=== PATIENT | female | born 1995 | race Caucasian/White ===

== ENCOUNTER 2017-09-24 21:19 | Emergency (ER) | payer MEDICAID ==
[~2017-09-24] VITALS: Ht 165.1 cm; Wt 76.9 kg
[~2017-09-24 21:19] MED LIST: BUPR200T2 PO; ORAL CONTRACEPTIVE PO
[2017-09-24 21:21] VITALS: BP 116/79
[2017-09-24] MEDS ORDERED: ALBUTEROL/IPRATROPIUM 2.5MG/0.5MG, 3 ML ONE (21:59)
[2017-09-24] MEDS ORDERED: ALBUTEROL/IPRATROPIUM 2.5MG/0.5MG, 3 ML NPPB ONE (22:00)
[2017-09-24] MEDS ORDERED: ONDANSETRON ODT 4 MG ONE (22:00)
[2017-09-24] MEDS ORDERED: ONDANSETRON ODT 4 MG PO ONE (22:00)
== END 2017-09-24 23:18 | disposition home or self-care (01) ==
LOC: ED 22:01
DX: J20.9 Acute bronchitis, unspecified (principal)
CPT/HCPCS: 71046; 94640; 99284; J7512; J7620; Q0162